=== PATIENT | female | born 1960 | race African-American/Black ===

== ENCOUNTER 2019-03-02 11:49 | Inpatient (IN) | payer OTHER ==
--- NOTE | 2019-03-02 13:25 | HP ---
CIWA Score Nausea/Vomitin-No Nausea/No Vomiting Muscle Tremors: 3 Anxiety: 4-Mod. Anxious/Guarded Agitation: 2 Paroxysmal Sweats: No Perspiration Orientation: 0-Oriented Tacttile Disturbances: 0-None Auditory Disturbances: 0-None Visual Disturbances: 0-None Headache: 3-Moderate CIWA-Ar Total Score: 12 - Admission Criteria OASAS Guidelines: Admission for Medically Managed Detox: Requires at least one of the followin. CIWA greater than 12 2. Seizures within the past 24 hours 3. Delirium tremens within the past 24 hours 4. Hallucinations within the past 24 hours 5. Acute intervention needed for co occurring medical disorder 6. Acute intervention needed for co occurring psychiatric disorder 7. Severe withdrawal that cannot be handled at a lower level of care (continued vomiting, continued diarrhea, abnormal vital signs) requiring intravenous medication and/or fluids 8. Admission ROS [facility] Chief Complaint: ETOH WITHDRAWAL SX AND COCAINE DEPENDENCE. Allergies/Adverse Reactions: Allergies Allergy/AdvReac Type Severity Reaction Status Date / Time No Known Allergies Allergy Verified 03/02/19 12:39 History of Present Illness: PATIENT PRESENTS FOR ETOH WITHDRAWAL SX AND COCAINE DEPENDENCE. PATIENT STARTED DRINKING ETOH AT AGE 26, DRINKS 6-12 BEERS DAILY. LAST DRINK LAST NIGHT. PATIENT REPORTS HAVING FIRST DRINK UPON RISING. DENIES HX OF SEIZURES, BLACKOUTS AND FALLS. PATIENT ALSO SMOKES CRACK/COCAINE AT AGE 26, LAST USE YESTERDAY. SMOKES 100$ DAILY. PMH INCLUDES ANXIETY/DEPRESSION, SYPHYLIS, TB ( TREATED) AND HIV+ (NON-COMPLIANT WITH MEDICATION). PATIENT DENIES SI/HI AND SUICIDE ATTEMPTS. Exam Limitations: No Limitations - Ebola screening Have you traveled outside of the country in the last 21 days: No Have you had contact with anyone from an Ebola affected area: No Do you have a fever: No - Review of Systems Constitutional: Unintentional Wgt. Loss EENT: reports: No Symptoms Reported Respiratory: reports: No Symptoms reported Cardiac: reports: No Symptoms Reported GI: reports: Poor Appetite, Poor Fluid Intake : reports: No Symptoms Reported Musculoskeletal: reports: Back Pain, Joint Pain, Muscle Pain Integumentary: reports: No Symptoms Reported Neuro: reports: Headache, Tremors Endocrine: reports: Unexplained Weight Loss Hematology: reports: No Symptoms Reported Psychiatric: reports: Orientated x3, Anxious, Depressed Patient History - Patient Medical History Hx Anemia: Yes (NON-COMPLIANT WITH FE++) Hx Asthma: No Hx Chronic Obstructive Pulmonary Disease (COPD): No Hx Cancer: No Hx Cardiac Disorders: No Hx Congestive Heart Failure: No Hx Hypertension: No Hx Hypercholesterolemia: No Hx Pacemaker: No HX Cerebrovascular Accident: No Hx Seizures: No Hx Dementia: No Hx Diabetes: No Hx Gastrointestinal Disorders: No Hx Liver Disease: No Hx Genitourinary Disorders: No Hx Sexually Transmitted Disorders: Yes (Syphillis 1981) Hx Renal Disease (ESRD): No Hx Thyroid Disease: No Hx Human Immunodeficiency Virus (HIV): Yes (NON-COMPLIANT WITH MEDICATION) Hx Hepatitis C: No Hx Depression: Yes Hx Suicide Attempt: No Hx Bipolar Disorder: No Hx Schizophrenia: No - Patient Surgical History Past Surgical History: Yes Hx Neurologic Surgery: No Hx Cataract Extraction: No Hx Cardiac Surgery: No Hx Lung Surgery: No Hx Breast Surgery: No Hx Breast Biopsy: No Hx Abdominal Surgery: No Hx Appendectomy: No Hx Cholecystectomy: No Hx Genitourinary Surgery: No Hx Section: No Hx Orthopedic Surgery: Yes (RT. FOREARM-PT. HAD OSTEOMYELITIS) Hx Hysterectomy: Yes (2009 FOR FIBROID) Anesthesia Reaction: No - PPD History Previous Implant?: Yes Documented Results: Positive w/o proof Results: positive PPD to be Administered?: No - Reproductive History Patient is a Female of Child Bearing Age (11 -55 yrs old): No Patient : No - Smoking Cessation Smoking history: Former smoker Have you smoked in the past 12 months: No Aproximately how many cigarettes per day: 6 Cigars Per Day: 0 Hx Chewing Tobacco Use: No Initiated information on smoking cessation: No - Substance & Tx. History Hx Alcohol Use: Yes Hx Substance Use: Yes Substance Use Type: Alcohol, Cocaine - Substances abused Alcohol Substance route: Oral Frequency: Daily Amount used: 6-12 Age of first use: 26 Date of last use: 03/01/19 Cocaine Substance route: Smoking Frequency: Daily Amount used: 100$ Age of first use: 26 Date of last use: 03/01/19 Family Disease History - Family Disease History Family Disease History: Diabetes: Mother, Heart Disease: Mother Admission Physical Exam BHS - Vital Signs Vital Signs: Vital Signs - 24 hr 03/02/19 13:02 Temperature 98.4 F Pulse Rate 63 Respiratory 18 Rate Blood Pressure 119/85 - Physical General Appearance: Yes: Thin, Tremorous, Anxious HEENTM: Yes: EOMI, Hearing grossly Normal, Normal ENT Inspection, Normocephalic , Normal Voice, NELIA, Pharynx Normal Respiratory: Yes: Chest Non-Tender, Lungs Clear, Normal Breath Sounds, No Respiratory Distress, No Accessory Muscle Use Neck: Yes: No masses,lesions,Nodules, Supple, Trachea in good position Breast: Yes: Breast Exam Deferred Cardiology: Yes: Regular Rhythm, Regular Rate, S1, S2 Abdominal: Yes: Normal Bowel Sounds, Non Tender, Flat Genitourinary: Yes: Within Normal Limits Back: Yes: Muscle Spasm Musculoskeletal: Yes: full range of Motion, Gait Steady, Back pain, Muscle Pain Extremities: Yes: Normal Capillary Refill, Normal Range of Motion, Non-Tender, Tremors Neurological: Yes: paint formulator II-XII NML intact, Fully Oriented, Alert, Motor Strength 5/5, Normal Mood/Affect, Normal Response Integumentary: Yes: Normal Color, Dry, Warm Lymphatic: Yes: Within Normal Limits - Diagnostic (1) Alcohol dependence with uncomplicated withdrawal Current Visit: Yes Status: Acute (2) Depressed affect Current Visit: Yes Status: Suspected (3) Anxiety Current Visit: Yes Status: Suspected (4) HIV (human immunodeficiency virus infection) Current Visit: Yes Status: Chronic Qualifiers: HIV symptom status: unspecified Qualified Code(s): B20 - Human immunodeficiency virus [HIV] disease (5) Cocaine dependence Current Visit: No Status: Chronic Cleared for Admission [facility] - Detox or Rehab [facility] Level of Care: Medically Managed Detox Regimen/Protocol: Librium Breathalyzer - Breathalyzer Breathalyzer: 0 POC Urine test - Test device test lot number: [id number] Expiration date: 08/01/20 - Control test control: Yes - Result Urine Test Results: Negative - NO line present Urine Drug Screen - Test Device Lot number: [id number] Expiration date: 10/31/20 - Control Is test valid?: Yes - Results Drug screen NEGATIVE: No Urine drug screen results: [facility]-Cocaine Inpatient Rehab Admission - Rehab Decision to Admit Inpatient rehab admission?: No
[2019-03-02] MEDS ORDERED: MAGNESIUM CITRATE 300 ML BOTTLE PO PRN (13:30)
[2019-03-02] MEDS ORDERED: MAG HYDROX/AL HYDROX/SIMETH 30 ML UNIT-DOSE CUP PO PRN (13:30)
[2019-03-02] MEDS ORDERED: BISMUTH SUBSALICYLATE 262 MG/15 ML BTL PO PRN (13:30)
[2019-03-02] MEDS ORDERED: MELATONIN 5 MG TABLETS PO PRN (13:30)
[2019-03-02] MEDS ORDERED: MAGNESIUM HYDROX 2400MG/30ML ORAL SUSPENSION 30 ML CUP PO PRN (13:30)
[2019-03-02] MEDS ORDERED: hydrOXYzine PAMOATE 25 MG CAPSULE (FP) PO PRN (13:30)
[2019-03-02] MEDS ORDERED: ACETAMINOPHEN 325 MG TABLET (FP) PO PRN (13:30)
[2019-03-02] MEDS ORDERED: MENTHOL/PHENOL 1 EACH UD MM PRN (13:30)
[2019-03-02] MEDS ORDERED: chlordiazePOXIDE HCL 10 MG CAPSULE PO PRN (13:34)
[2019-03-02 17:51] LABS: HEMATOCRIT 41.4 % (32.4-45.2); HEMOGLOBIN 13.6 GM/dL (10.7-15.3); MCH 31.8 pg (25.7-33.7); MCHC 32.8 g/dl (32.0-36.0); MEAN CELL VOLUME 97.1 fl (80-96); MEAN PLT VOLUME 7.9 fl (7.5-11.1); PLATELET COUNT 284 K/MM3 (134-434); RBC 4.27 M/mm3 (3.60-5.2); RDW 13.6 % (11.6-15.6); WHITE BLOOD COUNT 4.3 K/mm3 (4.0-10.0)
[2019-03-02 18:03] LABS: ALBUMIN 3.8 g/dl (3.4-5.0); ALK PHOS 74 U/L (45-117); ANION GAP 4 MMOL/L (8-16); BILIRUBIN,TOTAL 0.3 mg/dL (0.2-1); BLOOD UREA NITROGEN 10 mg/dL (7-18); CALCIUM 9.3 mg/dL (8.5-10.1); CHLORIDE 104 mmol/L (98-107); CO2 30 mmol/L (21-32); CREATININE 1.1 mg/dL (0.55-1.3); GLUCOSE,RANDOM 102 mg/dL (74-106); POTASSIUM 4.8 mmol/L (3.5-5.1); SGOT/AST 20 U/L (15-37); SGPT/ALT 23 U/L (13-61); SODIUM 138 mmol/L (136-145); TOT PROT 8.6 g/dl (6.4-8.2)
[2019-03-02] MEDS: chlordiazePOXIDE HCL 25 MG CAPSULE PO SCH (21:37)
[2019-03-02] MEDS: THIAMINE HCL 100 MG TABLET (FP) PO SCH (22:37)
[2019-03-03] MEDS: chlordiazePOXIDE HCL 25 MG CAPSULE PO SCH ×2 (05:16→13:02)
[2019-03-03] MEDS: PRENATAL VITAMINS W/ FOLIC ACID TABLET (FP) PO SCH (10:13)
--- NOTE | 2019-03-03 14:46 | EKG ---
Test Reason : Blood Pressure : / mmHG Vent. Rate : 075 BPM Atrial Rate : 075 BPM P-R Int : 144 ms QRS Dur : 074 ms QT Int : 422 ms P-R-T Axes : 077 057 056 degrees QTc Int : 471 ms NORMAL SINUS RHYTHM WITH SINUS ARRHYTHMIA NORMAL ECG NO PREVIOUS ECGS AVAILABLE Confirmed by Mumtaz Shrestha ([id number]) on 03/03/2019 2:46:12 PM Referred By: JOSE DAVID LONDON Confirmed By:Mumtaz Shrestha
--- NOTE | 2019-03-03 15:44 | PN ---
S CIWA - CIWA Score Nausea/Vomitin-No Nausea/No Vomiting Muscle Tremors: 3 Anxiety: 4-Mod. Anxious/Guarded Agitation: 1-Slight > Activity Paroxysmal Sweats: 3 Orientation: 0-Oriented Tacttile Disturbances: 0-None Auditory Disturbances: 0-None Visual Disturbances: 1-Very Mild Sensitivity Headache: 2-Mild CIWA-Ar Total Score: 14 BHS Progress Note (SOAP) Subjective: Tremors, Anxious, H/A, Sweating. Objective: PATIENT A & O X 3, OBSERVED AMBULATING ON UNIT. IN NO ACUTE DISTRESS. 03/03/19 15:42 Vital Signs Temperature 97.9 F 03/03/19 13:34 Pulse Rate 85 03/03/19 13:34 Respiratory Rate 18 03/03/19 13:34 Blood Pressure 102/67 03/03/19 13:34 O2 Sat by Pulse Oximetry (%) Laboratory Tests 03/02/19 03/02/19 03/02/19 14:00 14:00 14:00 WBC 4.3 RBC 4.27 Hgb 13.6 Hct 41.4 MCV 97.1 H MCH 31.8 MCHC 32.8 RDW 13.6 D Plt Count 284 D MPV 7.9 Sodium 138 Potassium 4.8 Chloride 104 Carbon Dioxide 30 Anion Gap 4 L BUN 10 Creatinine 1.1 Creat Clearance w eGFR 51.20 Random Glucose 102 Calcium 9.3 Total Bilirubin 0.3 AST 20 ALT 23 Alkaline Phosphatase 74 Total Protein 8.6 H Albumin 3.8 RPR Titer Nonreactive LABS NOTED. UA RESULTS PENDING. 03/03/19 15:43 Assessment: 03/03/19 15:42 WITHDRAWAL SYMPTOMS. Plan: CONTINUE DETOX. INCREASE DAILY PO FLUID INTAKE.
[2019-03-03 17:17] LABS: EPI CELLS 2.7 /HPF (0-5); PH,URINE 5.5 (5.0-8.0); URINE APPEARANCE CLEAR; URINE BACTERIA 20.8 /hpf (NEGATIVE); URINE BILIRUBIN NEGATIVE (NEGATIVE); URINE CASTS 1 /hpf (0-8); URINE COLOR YELLOW; URINE GLUCOSE (UA) NEGATIVE (NEGATIVE); URINE KETONE TRACE (NEGATIVE); URINE LEUK ESTERASE 3+ (NEGATIVE); URINE NITRITE NEGATIVE (NEGATIVE); URINE PROTEIN NEGATIVE (NEGATIVE); URINE RBC 1 /hpf (0-4); URINE UROBILINOGEN 0.2 mg/dL (0.2-1.0); URINE WBC 18 /hpf (0-5)
[2019-03-03] MEDS: THIAMINE HCL 100 MG TABLET (FP) PO SCH (22:15)
[2019-03-03] MEDS: chlordiazePOXIDE 5 MG CAPSULE PO SCH (22:15)
[2019-03-04] MEDS: chlordiazePOXIDE 5 MG CAPSULE PO SCH ×2 (05:09→12:25)
[2019-03-04] MEDS: PRENATAL VITAMINS W/ FOLIC ACID TABLET (FP) PO SCH (10:46)
[2019-03-04] MEDS: IBUPROFEN 400 MG TABLET (FP) PO PRN ×2 (10:47→21:30)
--- NOTE | 2019-03-04 14:27 | PN ---
[facility] CIWA - CIWA Score Nausea/Vomitin-No Nausea/No Vomiting Muscle Tremors: 7-Severe,w/o Arm Extended Agitation: 0-Normal Activity Paroxysmal Sweats: No Perspiration Orientation: 0-Oriented Tacttile Disturbances: 0-None Auditory Disturbances: 0-None Visual Disturbances: 0-None Headache: 0-None Present [facility] Progress Note (SOAP) Subjective: pt states she is feeling fine today- no complaints O: Vital Signs - 24 hr 03/03/19 03/03/19 03/04/19 18:06 21:39 00:30 Temperature 98.2 F 98.4 F Pulse Rate 76 81 Respiratory 18 16 18 Rate Blood Pressure 112/68 96/67 03/04/19 03/04/19 03/04/19 03:30 06:15 06:30 Temperature 96.1 F L Pulse Rate 51 L Respiratory 18 18 18 Rate Blood Pressure 98/68 03/04/19 03/04/19 09:35 14:21 Temperature 97.4 F L 98.2 F Pulse Rate 66 78 Respiratory 18 18 Rate Blood Pressure 100/62 95/66 Laboratory Tests 03/02/19 03/02/19 03/02/19 14:00 14:00 14:00 WBC 4.3 RBC 4.27 Hgb 13.6 Hct 41.4 MCV 97.1 H MCH 31.8 MCHC 32.8 RDW 13.6 D Plt Count 284 D MPV 7.9 Sodium 138 Potassium 4.8 Chloride 104 Carbon Dioxide 30 Anion Gap 4 L BUN 10 Creatinine 1.1 Creat Clearance w eGFR 51.20 Random Glucose 102 Calcium 9.3 Total Bilirubin 0.3 AST 20 ALT 23 Alkaline Phosphatase 74 Total Protein 8.6 H Albumin 3.8 Urine Color Urine Appearance Urine pH Ur Specific [place] Urine Protein Urine Glucose (UA) Urine Ketones Urine Blood Urine Nitrite Urine Bilirubin Urine Urobilinogen Ur Leukocyte Esterase Urine WBC (Auto) Urine RBC (Auto) Urine Casts (Auto) U Epithel Cells (Auto) Urine Bacteria (Auto) RPR Titer Nonreactive 03/03/19 13:00 WBC RBC Hgb Hct MCV MCH MCHC RDW Plt Count MPV Sodium Potassium Chloride Carbon Dioxide Anion Gap BUN Creatinine Creat Clearance w eGFR Random Glucose Calcium Total Bilirubin AST ALT Alkaline Phosphatase Total Protein Albumin Urine Color Yellow Urine Appearance Clear Urine pH 5.5 Ur Specific [place] 1.020 Urine Protein Negative Urine Glucose (UA) Negative Urine Ketones Trace H Urine Blood Negative Urine Nitrite Negative Urine Bilirubin Negative Urine Urobilinogen 0.2 Ur Leukocyte Esterase 3+ H Urine WBC (Auto) 18 Urine RBC (Auto) 1 Urine Casts (Auto) 1 U Epithel Cells (Auto) 2.7 Urine Bacteria (Auto) 20.8 RPR Titer a/p: continue alcohol detox protocol- pt doing well
[2019-03-04] MEDS ORDERED: chlordiazePOXIDE HCL 10 MG CAPSULE PO PRN (21:00)
[2019-03-04] MEDS: chlordiazePOXIDE HCL 10 MG CAPSULE PO SCH (21:29)
[2019-03-04] MEDS: THIAMINE HCL 100 MG TABLET (FP) PO SCH (21:29)
[2019-03-05] MEDS: chlordiazePOXIDE HCL 10 MG CAPSULE PO SCH (06:55)
[2019-03-05] MEDS: IBUPROFEN 400 MG TABLET (FP) PO PRN (10:31)
[2019-03-05] MEDS: PRENATAL VITAMINS W/ FOLIC ACID TABLET (FP) PO SCH (10:32)
[2019-03-05 14:14] VITALS: BP 99/66; PULSE 67; TEMP 98.1
--- NOTE | 2019-03-05 17:48 | PN ---
BHS Progress Note (SOAP) Subjective: Anxious. Objective: PATIENT A & O X 3, OBSERVED AMBULATING ON UNIT. IN NO ACUTE DISTRESS. 03/05/19 17:47 Vital Signs Temperature 98.1 F 03/05/19 14:13 Pulse Rate 67 03/05/19 14:13 Respiratory Rate 18 03/05/19 14:13 Blood Pressure 99/66 03/05/19 14:13 O2 Sat by Pulse Oximetry (%) Laboratory Tests 03/02/19 03/02/19 03/02/19 14:00 14:00 14:00 WBC 4.3 RBC 4.27 Hgb 13.6 Hct 41.4 MCV 97.1 H MCH 31.8 MCHC 32.8 RDW 13.6 D Plt Count 284 D MPV 7.9 Sodium 138 Potassium 4.8 Chloride 104 Carbon Dioxide 30 Anion Gap 4 L BUN 10 Creatinine 1.1 Creat Clearance w eGFR 51.20 Random Glucose 102 Calcium 9.3 Total Bilirubin 0.3 AST 20 ALT 23 Alkaline Phosphatase 74 Total Protein 8.6 H Albumin 3.8 Urine Color Urine Appearance Urine pH Ur Specific [place] Urine Protein Urine Glucose (UA) Urine Ketones Urine Blood Urine Nitrite Urine Bilirubin Urine Urobilinogen Ur Leukocyte Esterase Urine WBC (Auto) Urine RBC (Auto) Urine Casts (Auto) U Epithel Cells (Auto) Urine Bacteria (Auto) RPR Titer Nonreactive 03/03/19 13:00 WBC RBC Hgb Hct MCV MCH MCHC RDW Plt Count MPV Sodium Potassium Chloride Carbon Dioxide Anion Gap BUN Creatinine Creat Clearance w eGFR Random Glucose Calcium Total Bilirubin AST ALT Alkaline Phosphatase Total Protein Albumin Urine Color Yellow Urine Appearance Clear Urine pH 5.5 Ur Specific [place] 1.020 Urine Protein Negative Urine Glucose (UA) Negative Urine Ketones Trace H Urine Blood Negative Urine Nitrite Negative Urine Bilirubin Negative Urine Urobilinogen 0.2 Ur Leukocyte Esterase 3+ H Urine WBC (Auto) 18 Urine RBC (Auto) 1 Urine Casts (Auto) 1 U Epithel Cells (Auto) 2.7 Urine Bacteria (Auto) 20.8 RPR Titer LABS NOTED. Assessment: 03/05/19 17:47 WITHDRAWAL SYMPTOMS. Plan: CONTINUE DETOX. INCREASE DAILY PO FLUID INTAKE.
--- NOTE | 2019-03-05 17:51 | DS ---
[facility] Detox Discharge Summary Admission Date: 03/02/19 Discharge Date: 03/05/19 - History Present History: Alcohol Dependence, Cocaine Dependence Additional Comments: DESPITE EFFORTS BY MORTGAGE BRANCH MANAGER AND BY NURSING STAFF TO ADDRESS PATIENT'S MEDICAL NEEDS / CONCERNS, PATIENT DOES NOT WISH TO REMAIN TO COMPLETE DETOX REGIMEN. PATIENT OFFERED OPPORTUNITY OF POSSIBLE REHAB BED ADMISSION AT [facility] ALTERNATIVE TO LEAVING DETOX UNIT AMA; HOWEVER, PATIENT DECLINED TO ACCEPT REHAB BED AND ELECTED TO LEAVE DETOX UNIT AMA. RISKS OF LEAVING DETOX UNIT AGAINST MEDICAL ADVICE AND PRIOR TO COMPLETION OF DETOX REGIMEN EXPLAINED TO PATIENT. PATIENT ADVISED TO GO IMMEDIATELY TO NEAREST ER SHOULD ANY INTOLERABLE WITHDRAWAL / DETOX SYMPTOMS DEVELOP AT ANY TIME. PATIENT VERBALIZED UNDERSTANDING OF ALL INFORMATION / RECOMMENDATIONS PRESENTED TO HIM PRIOR TO DEPARTURE FROM DETOX UNIT. PATIENT LEFT DETOX UNIT IN STABLE MEDICAL CONDITION. Pertinent Past History: History of Anemia, Depression, H.I.V., Anxiety. - Physical Exam Results Vital Signs: Vital Signs Temperature 98.1 F 03/05/19 14:13 Pulse Rate 67 03/05/19 14:13 Respiratory Rate 18 03/05/19 14:13 Blood Pressure 99/66 03/05/19 14:13 O2 Sat by Pulse Oximetry (%) Pertinent Admission Physical Exam Findings: WITHDRAWAL SYMPTOMS. Laboratory Tests 03/02/19 03/02/19 03/02/19 14:00 14:00 14:00 WBC 4.3 RBC 4.27 Hgb 13.6 Hct 41.4 MCV 97.1 H MCH 31.8 MCHC 32.8 RDW 13.6 D Plt Count 284 D MPV 7.9 Sodium 138 Potassium 4.8 Chloride 104 Carbon Dioxide 30 Anion Gap 4 L BUN 10 Creatinine 1.1 Creat Clearance w eGFR 51.20 Random Glucose 102 Calcium 9.3 Total Bilirubin 0.3 AST 20 ALT 23 Alkaline Phosphatase 74 Total Protein 8.6 H Albumin 3.8 Urine Color Urine Appearance Urine pH Ur Specific [place] Urine Protein Urine Glucose (UA) Urine Ketones Urine Blood Urine Nitrite Urine Bilirubin Urine Urobilinogen Ur Leukocyte Esterase Urine WBC (Auto) Urine RBC (Auto) Urine Casts (Auto) U Epithel Cells (Auto) Urine Bacteria (Auto) RPR Titer Nonreactive 03/03/19 13:00 WBC RBC Hgb Hct MCV MCH MCHC RDW Plt Count MPV Sodium Potassium Chloride Carbon Dioxide Anion Gap BUN Creatinine Creat Clearance w eGFR Random Glucose Calcium Total Bilirubin AST ALT Alkaline Phosphatase Total Protein Albumin Urine Color Yellow Urine Appearance Clear Urine pH 5.5 Ur Specific [place] 1.020 Urine Protein Negative Urine Glucose (UA) Negative Urine Ketones Trace H Urine Blood Negative Urine Nitrite Negative Urine Bilirubin Negative Urine Urobilinogen 0.2 Ur Leukocyte Esterase 3+ H Urine WBC (Auto) 18 Urine RBC (Auto) 1 Urine Casts (Auto) 1 U Epithel Cells (Auto) 2.7 Urine Bacteria (Auto) 20.8 RPR Titer LABS NOTED. - Treatment Hospital Course: Detox Protocol Followed, Detoxed Safely - Medication Discharge Medications: Ambulatory Orders Citalopram Hydrobromide [Celexa -] 20 mg PO DAILY 03/02/19 Elviteg/Cob/Emtri/Tenof Alafen [Genvoya (Non-Formulary)] 1 each PO DAILY - Diagnosis (1) Alcohol dependence with uncomplicated withdrawal Status: Acute (2) Cocaine dependence Status: Chronic (3) HIV (human immunodeficiency virus infection) Status: Chronic Qualifiers: HIV symptom status: unspecified Qualified Code(s): B20 - Human immunodeficiency virus [HIV] disease (4) Anxiety Status: Suspected (5) Depressed affect Status: Suspected - AMA Did Patient Leave Against Medical Advice: Yes (PATIENT DID NOT WISH TO REMAIN TO COMPLETE DETOX REGIMEN.)
== END 2019-03-05 13:15 | disposition left against medical advice (07) | DRG 770 ==
LOC: YASAS 11:49 → Y3N 13:57
PROVIDERS: ADMIT Surgery; ATTEND Surgery
PROC: HZ2ZZZZ Detoxification Services for Substance Abuse Treatment (ICD-10-PCS; principal; 2019-03-02)
DX: F10.230 Alcohol dependence with withdrawal, uncomplicated (principal); F14.20 Cocaine dependence, uncomplicated; F41.9 Anxiety disorder, unspecified; F32.9 Major depressive disorder, single episode, unspecified; Z21 Asymptomatic human immunodeficiency virus [HIV] infection status; Z87.891 Personal history of nicotine dependence; Z91.14 Patient's other noncompliance with medication regimen; Z86.11 Personal history of tuberculosis; Z87.42 Personal history of other diseases of the female genital tract
CPT/HCPCS: 36415; 71046-TC-FY; 80053; 81003; 85027; 86593; 93005; 93010

== ENCOUNTER 2020-12-28 17:11 | Inpatient (IN) | payer OTHER ==
[2020-12-28] MEDS ORDERED: MAGNESIUM CITRATE 300 ML BOTTLE PO PRN (19:58)
[2020-12-28] MEDS ORDERED: ACETAMINOPHEN 325 MG TABLET (FP) PO PRN ×2 (19:58)
[2020-12-28] MEDS ORDERED: ONDANSETRON *ODT* 4 MG TABLET SL PRN (19:58)
[2020-12-28] MEDS ORDERED: BISMUTH SUBSALICYLATE 524 MG/30 ML UD PO PRN (19:58)
[2020-12-28] MEDS ORDERED: MAG HYDROX/AL HYDROX/SIMETH 30 ML UNIT-DOSE CUP PO PRN (19:58)
[2020-12-28] MEDS ORDERED: METHOCARBAMOL 500 MG TABLET PO PRN (19:58)
[2020-12-28] MEDS ORDERED: MAGNESIUM HYDROX 2400MG/30ML ORAL SUSPENSION 30 ML CUP PO PRN (19:58)
[2020-12-28] MEDS ORDERED: MENTHOL/PHENOL 1 EACH UD MM PRN (19:58)
[2020-12-28] MEDS ORDERED: chlordiazePOXIDE HCL 25 MG CAPSULE PO PRN (20:00)
[2020-12-28 20:12] VITALS: BMI 21.1
[2020-12-28] MEDS: MELATONIN 5 MG TABLETS PO SCH (22:13)
[2020-12-28] MEDS: hydrOXYzine PAMOATE 25 MG CAPSULE (FP) PO PRN (22:14)
[2020-12-28] MEDS: THIAMINE HCL 100 MG TABLET (FP) PO SCH (22:14)
[2020-12-28] MEDS: chlordiazePOXIDE HCL 25 MG CAPSULE PO SCH (22:14)
[2020-12-29] MEDS: chlordiazePOXIDE HCL 25 MG CAPSULE PO SCH ×4 (06:22→22:27)
[2020-12-29] MEDS: IBUPROFEN 400 MG TABLET (FP) PO PRN (06:25)
[2020-12-29] MEDS: PRENATAL VITAMINS W/ FOLIC ACID TABLET (FP) PO SCH (10:15)
[2020-12-29] MEDS: PATIENT'S OWN MEDICATION (NON-FORMULARY) (Elviteg/Cob/Emtri/Tenof Alafen 1 TAB Tablet) PO SCH (11:15)
[2020-12-29 12:29] LABS: HEMATOCRIT 38.9 % (32.4-45.2); HEMOGLOBIN 12.7 GM/dL (10.7-15.3); MCH 30.5 pg (25.7-33.7); MCHC 32.7 g/dl (32.0-36.0); MEAN CELL VOLUME 93.3 fl (80-96); MEAN PLT VOLUME 7.7 fl (7.5-11.1); PLATELET COUNT 439 K/MM3 (134-434); RBC 4.17 M/mm3 (3.60-5.2); RDW 14.6 % (11.6-15.6)
[2020-12-29 12:31] LABS: POTASSIUM 4.5 mmol/L (3.5-5.1)
[2020-12-29 12:35] LABS: CALCIUM 9.4 mg/dL (8.5-10.1)
[2020-12-29 12:36] LABS: ALBUMIN 3.5 g/dl (3.4-5.0); BLOOD UREA NITROGEN 14.4 mg/dL (7-18)
[2020-12-29 12:41] LABS: BILIRUBIN,TOTAL 0.9 mg/dL (0.2-1); TOT PROT 7.6 g/dl (6.4-8.2)
[2020-12-29] MEDS: MELATONIN 5 MG TABLETS PO SCH (21:54)
[2020-12-29] MEDS: hydrOXYzine PAMOATE 25 MG CAPSULE (FP) PO PRN (21:54)
[2020-12-29] MEDS: THIAMINE HCL 100 MG TABLET (FP) PO SCH (21:54)
[2020-12-30] MEDS: chlordiazePOXIDE HCL 25 MG CAPSULE PO SCH ×4 (06:05→22:33)
[2020-12-30] MEDS: PRENATAL VITAMINS W/ FOLIC ACID TABLET (FP) PO SCH (10:01)
[2020-12-30] MEDS: PATIENT'S OWN MEDICATION (NON-FORMULARY) (Elviteg/Cob/Emtri/Tenof Alafen 1 TAB Tablet) PO SCH (10:02)
[2020-12-30] MEDS: IBUPROFEN 400 MG TABLET (FP) PO PRN (17:37)
[2020-12-30] MEDS: MELATONIN 5 MG TABLETS PO SCH (22:33)
[2020-12-30] MEDS: THIAMINE HCL 100 MG TABLET (FP) PO SCH (22:33)
[2020-12-31] MEDS ORDERED: chlordiazePOXIDE HCL 10 MG CAPSULE PO PRN
[2020-12-31] MEDS: chlordiazePOXIDE HCL 10 MG CAPSULE PO SCH ×2 (06:20→10:23)
[2020-12-31] MEDS: PATIENT'S OWN MEDICATION (NON-FORMULARY) (Elviteg/Cob/Emtri/Tenof Alafen 1 TAB Tablet) PO SCH (08:36)
[2020-12-31] MEDS: PRENATAL VITAMINS W/ FOLIC ACID TABLET (FP) PO SCH (10:23)
[2020-12-31] MEDS: IBUPROFEN 400 MG TABLET (FP) PO PRN (10:24)
[2020-12-31 13:50] VITALS: BP 92/61; PULSE 53; TEMP 97.5
[2021-01-01] MEDS ORDERED: chlordiazePOXIDE HCL 10 MG CAPSULE PO SCH (05:00)
[2021-01-02] MEDS ORDERED: chlordiazePOXIDE HCL 10 MG CAPSULE PO ONE (05:00)
== END 2020-12-31 14:29 | disposition home or self-care (01) | DRG 774 ==
LOC: YASAS 17:11 → Y3N 20:25
PROVIDERS: ADMIT Allergy & Immunology; ATTEND Allergy & Immunology
PROC: HZ2ZZZZ Detoxification Services for Substance Abuse Treatment (ICD-10-PCS; principal; 2020-12-28)
DX: F10.230 Alcohol dependence with withdrawal, uncomplicated (principal); F14.20 Cocaine dependence, uncomplicated; F12.10 Cannabis abuse, uncomplicated; F17.210 Nicotine dependence, cigarettes, uncomplicated; F19.24 Other psychoactive substance dependence with psychoactive substance-induced mood disorder; F41.9 Anxiety disorder, unspecified; F32.9 Major depressive disorder, single episode, unspecified; Z21 Asymptomatic human immunodeficiency virus [HIV] infection status; H40.9 Unspecified glaucoma; D50.8 Other iron deficiency anemias; M41.9 Scoliosis, unspecified; M54.30 Sciatica, unspecified side; Z86.11 Personal history of tuberculosis; Z87.39 Personal history of other diseases of the musculoskeletal system and connective tissue; Z87.09 Personal history of other diseases of the respiratory system; Z86.19 Personal history of other infectious and parasitic diseases; Z56.0 Unemployment, unspecified; Z59.0 Homelessness
CPT/HCPCS: 36415; 71046-TC-FY; 80053; 85027; 86593; 86780; 93005; 93010; C9803; Q0162; U0003